=== PATIENT | female | born 1950 | race Caucasian/White ===

== ENCOUNTER → 2016-10-22 | Outpatient (CLI) | payer OTHER, BC ==
[2016-10-22 07:41] LABS: CALCIUM 9.3 mg/dL (8.7-10.7); CHOL/HDL RATIO 2.94 RATIO (0-4.0); MAGNESIUM 2.2 mg/dL (1.6-2.4); PHOSPHORUS 3.5 mg/dl (2.4-4.3); SERUM ALBUMIN 4.1 g/dL (3.5-4.8)
[2016-10-22 07:45] LABS: BASOPHILS % (AUTO) 2.3 % (0-1); EOSINOPHILS # (AUTO) 0.04 10*3/UL; EOSINOPHILS % (AUTO) 0.9 % (0-8); HEMOGLOBIN 13.2 g/dL (12.0-16.0); LYMPHOCYTES # (AUTO) 1.33 10*3/uL; MEAN CORPUSCULAR HEMOGLOBIN 28.6 PG (27-31); MEAN CORPUSCULAR VOLUME 86.8 FL (81-99); MEAN PLATELET VOLUME 9.9 FL (7.4-12.2); MONOCYTES # (AUTO) 0.58 10*3/UL (0.3-0.8); MONOCYTES % (AUTO) 13.4 % (5-15); NEUTROPHILS # (AUTO) 2.27 10*3/UL; NEUTROPHILS % (AUTO) 52.6 % (50-80); RED BLOOD COUNT 4.61 10^6/uL (4.20-5.40)
[2016-10-22 09:16] LABS: PLATELET MORPHOLOGY COMMENT NORMAL MORPHOLOGY (NORM); RBC MORPHOLOGY COMMENT NORMAL MORPHOLOGY (NORM); WBC MORPHOLOGY COMMENT NORMAL MORPHOLOGY (NORM)
== END ==
LOC: LAB 06:59
PROVIDERS: ATTEND Internal Medicine
DX: M81.0 Age-related osteoporosis without current pathological fracture (principal); E55.9 Vitamin D deficiency, unspecified; Z79.899 Other long term (current) drug therapy
CPT/HCPCS: 36415; 80053; 80061; 82306; 83735; 84100; 84443; 85025